=== PATIENT | female | born 1940 | race Caucasian/White ===

== ENCOUNTER → 2016-03-11 | Outpatient (CLI) | payer MEDICARE, BC ==
[~2016-03-11] MED LIST: GLUCTAB PO; LISI-363 PO; PRIL40CA PO; SULF1TAB47 PO
--- NOTE | 2016-03-12 23:13 | TR ---
Date Performed: 03/11/2016 Time Performed: 13:07:12 DOCTOR: Ricky Juarez DRUG LIST: CLINICAL HISTORY: HYPERLIPIDEMIA/HTN REASON FOR TEST: HYPERLIPIDEMIA/HTN REASON FOR ENDING: OBSERVATION: CONCLUSION: Arsen protocol completed. Stopped sec to reaching target and knee pain. Maximum HR= 127 Target HR Achieved=86.0% Total Exercise Time=3:13 Max bp 190/80. No chest pain/sob. Poor exercise tolerance due to knee pain. No st t segmnet changes noted to sugg ischemia. Blood pressure mildly to moderately elevated. Freq PVC duirng recovery period. Recovery period unremarkable. COMMENTS: CONCLUSION: Normal exercise treadmill. No evidence of ischemia.
== END ==
LOC: HCAV 11:58
PROVIDERS: ATTEND Family Medicine
DX: E78.4 Other hyperlipidemia (principal); I10 Essential (primary) hypertension; E11.9 Type 2 diabetes mellitus without complications
CPT/HCPCS: 93017

== ENCOUNTER 2017-03-28 13:51 | Emergency (ER) | payer MEDICARE, BC ==
[~2017-03-28] VITALS: Ht 165.1 cm; Wt 104.0 kg
[2017-03-28 14:21] VITALS: BP 145/80; PULSE 72; RESP 18; TEMP 97.7; O2SAT 93
--- NOTE | 2017-03-28 14:27 | PD ---
HPI Chief Complaint: Musculoskeletal Complaint Time Seen by Provider: 14:23 Travel History International Travel<30 days: No Contact w/Intl Traveler<30days: No Traveled to known affect area: No History of Present Illness HPI 76-year-old female presents for evaluation of left knee pain. Symptoms started yesterday. She describes it as a mild aching pain which is worse with walking. She does not recall any trauma. She does recall a history of partial knee replacement several years ago and reports that it feels like hardware is misaligned. She reports that she has been exercising more over the past few weeks than usual, primarily biking. She has no other complaints at this time. 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) Tonsillectomy: Yes Social History Alcohol Use: No Tobacco Use: No Substance Use: No Allergies-Medications (Allergen,Severity, Reaction): Coded Allergies: erythromycin base (Unverified Allergy, Severe, RASH, 10/11/16) penicillin G (Unverified Allergy, Severe, RASH, 10/11/16) Reported Meds & Prescriptions Reported Meds & Active Scripts Active Bactrim Ds (Trimethoprim/Sulfamethoxazole) Tab 1 Tab PO BID Reported Metformin Hcl (Metformin HCl) 500 Mg Tab 500 Mg PO DAILY Prilosec (Omeprazole) 40 Mg Cap 40 Mg PO DAILY Lisinopril 20 Mg Tab 20 Mg PO DAILY Review of Systems General / Constitutional: No: Fever, Chills Musculoskeletal: Positive: Pain, No: Limited ROM Physical Exam Narrative GENERAL: Well-nourished female in no acute distress SKIN: Warm and dry. Old surgical scar anterior left knee. No erythema or soft tissue swelling. CARDIOVASCULAR: Regular rate and rhythm. No murmur appreciated. RESPIRATORY: No accessory muscle use. Clear to auscultation. Breath sounds equal bilaterally. MUSCULOSKELETAL: Skin as noted above. Mild tenderness to palpation of the anterior left knee joint. Mild crepitus with flexion and extension of left knee. Range of motion, distal pulses preserved. Data Data Last Documented VS Vital Signs Date Time Temp Pulse Resp B/P (MAP) Pulse Ox O2 Delivery O2 Flow Rate FiO2 03/28/17 14:21 97.7 72 18 145/80 (101) 93 Orders Orders Knee, Complete (4vws) (03/28/17 ) Radiology Film Requests (03/28/17 ) Ed Discharge Order (03/28/17 15:22) MDM Medical Decision Making Medical Screen Exam Complete: Yes Emergency Medical Condition: Yes Medical Record Reviewed: Yes Differential Diagnosis Hardware malplacement versus tendinitis versus strain versus sprain Narrative Course CONCLUSION: Medial hemiarthroplasty. Medial tibial plateau plate may be depressed 3 or 4 mm on the intercondylar region of the tibia. X-ray imaging reveals no acute abnormalities. The patient be given a copy of her x-ray report. Her pain is most likely secondary to overuse from increase in exercise. The patient will be given the name of a local orthopedist that she can follow up with if symptoms persist. She is stable for discharge. Diagnosis Primary Impression: Left knee pain Referrals: Lenny Gaspar Jr., MD Additional Instructions: Rest, avoid activities that increase her pain. If symptoms persist follow-up with an orthopedist such as Dr. Gaspar. Med/Other Pt SpecificInfo: No Change to Meds Disposition: 01 DISCHARGE HOME Condition: Stable Jayson Amor Mar 28, 2017 14:27
--- NOTE | 2017-03-28 15:12 | RADRPT ---
EXAM DATE/TIME: 03/28/2017 14:43 [facility] COMPARISON: No previous studies available for comparison. INDICATIONS : Left knee pain for 2 days. Patient stated she feels a "clicking" in her left knee. MEDICAL HISTORY : None. SURGICAL HISTORY : Partial left knee replacement. ENCOUNTER: Initial ACUITY: 2 days PAIN SCORE: 5/10 LOCATION: Left knee. FINDINGS: There is a medial hemiarthroplasty. The medial tibial plateau plate may be minimally depressed upon t he intercondylar region by approximately 3-4 mm there is no evidence of loosening. There is no acute bony injury or dislocation. CONCLUSION: Medial hemiarthroplasty. Medial tibial plateau plate may be depressed 3 or 4 mm on the intercondylar region of the tibia. Alvaro Rolle MD on March 28, 2017 at 15:08 Board Certified Radiologist. This report was verified electronically.
== END 2017-03-28 15:59 | disposition home or self-care (01) ==
LOC: PHEFT 13:51
DX: M25.562 Pain in left knee (principal); I10 Essential (primary) hypertension; K21.9 Gastro-esophageal reflux disease without esophagitis; Y93.55 Activity, bike riding; Z88.0 Allergy status to penicillin; Z88.1 Allergy status to other antibiotic agents; Z79.84 Long term (current) use of oral hypoglycemic drugs; Z79.899 Other long term (current) drug therapy
CPT/HCPCS: 73564; 99283

== ENCOUNTER 2017-07-05 15:46 | Emergency (ER) | payer OTHER, BC, MEDICARE ==
[2017-07-05] MEDS: ORPHENADRINE INJ 60 MG/2 ML AMP IM (16:43)
== END 2017-07-05 17:54 | disposition home or self-care (01) ==
LOC: PHEFT 15:46
DX: M54.5 Low back pain (principal); M62.81 Muscle weakness (generalized); M41.9 Scoliosis, unspecified; M51.36 Other intervertebral disc degeneration, lumbar region; I10 Essential (primary) hypertension; E11.9 Type 2 diabetes mellitus without complications; K21.9 Gastro-esophageal reflux disease without esophagitis; V43.52XA Car driver injured in collision with other type car in traffic accident, initial encounter; Z79.82 Long term (current) use of aspirin
CPT/HCPCS: 72131; 96372; 99283-25